=== PATIENT | female | born 1960 | race Caucasian/White ===

== ENCOUNTER 2024-01-16 17:13 | Inpatient (IN) | payer MEDICARE ==
[~2024-01-16] VITALS: Ht 157.4 cm; Wt 102.6 kg
[2024-01-16 18:29] VITALS: BP 149/70
[2024-01-16 19:03] LABS: BASO # 0.1 10*3/uL (0.0-0.1); BASO % 0.5 % (0.0-1.0); EOS # 0.3 10*3/uL (0.0-0.4); EOS % 2.1 % (1.0-4.0); HEMATOCRIT 32.2 % (37.0-47.0); LYMPH # 2.4 10*3/uL (1.3-4.4); LYMPH % 20.3 % (27.0-41.0); MEAN CELL VOLUME 100.9 fl (81.0-99.0); MEAN CORPUSCULAR HGB 32.9 pg (27.0-31.0); MEAN CORPUSCULAR HGB CONC 32.6 g/dl (33.0-37.0); MONO # 0.9 10*3/uL (0.1-1.0); MONO % 7.9 % (3.0-9.0); NEUT # 8.2 10*3/uL (2.3-7.9); NEUT % 68.8 % (47.0-73.0); PLATELET COUNT AUTOMATED 220 10*3/uL (130-400); RED BLOOD COUNT 3.19 10*6/uL (4.10-5.10); RED CELL DISTRI WIDTH 12.8 % (0-14.5); WHITE BLOOD COUNT 11.9 10*3/uL (4.8-10.8)
[2024-01-16 19:20] LABS: BILIRUBIN Negative (Negative); BLOOD Negative (Negative); CLARITY Clear (Clear); COLOR Yellow (Yellow); GLUCOSE Trace (Negative); KETONE Trace (Negative); LEUKO ESTERASE 2+ (Negative); NITRITE Negative (Negative)
[2024-01-16 19:26] LABS: URINE AMPHETAMINES Negative (1000ng/ml); URINE BARBITURATES Negative (200ng/ml); URINE BENZODIAZEPINES Negative (200ng/ml); URINE CANNABINOIDS (THC) Negative (50ng/ml); URINE COCAINE Negative (300ng/ml); URINE METHADONE Negative (300ng/ml); URINE OPIATES Negative (300ng/ml); URINE PHENCYCLIDINE Negative (25ng/ml)
[2024-01-16 19:27] LABS: ALKALINE PHOSPHATASE 55 U/L (46-116); BUN 27 mg/dl (9-23); CHLORIDE 106 mmol/L (98-107); CPK 200 U/L (34-171); SGPT/ALT 23 U/L (5-49); TOTAL PROTEIN 6.9 gm/dL (6.0-8.0)
[2024-01-16 19:31] LABS: ETHYL ALCOHOL < 3.0 mg/dl (<3)
[2024-01-16 19:33] LABS: BACTERIA 1+; MUCOUS 1+; RBC 0-2 rbc/hpf (0-2); WBC 21-30 wbc/hpf (0-5)
[2024-01-16] MEDS ORDERED: Ciprofloxacin Hydrochloride 500 MG TAB PO ONE (20:55)
[2024-01-16] MEDS ORDERED: MG-AL HYDROXIDE/SIMETICONE 30 ML UDC PO PRN (22:20)
[2024-01-16] MEDS ORDERED: ACETAMINOPHEN 325 MG TAB PO PRN (22:20)
[2024-01-16] MEDS ORDERED: Magnesium Hydroxide 30 ML UDC PO PRN (22:20)
[2024-01-16 22:23] VITALS: BP 148/77
[2024-01-16] MEDS ORDERED: Menthol/Zinc Oxide 4 GM THIN T PRN (22:30)
[2024-01-16] MEDS ORDERED: METOPROLOL SUCC25 M2 PO (22:46)
[2024-01-16] MEDS ORDERED: VITAMIN D325 MCG PO (22:47)
[2024-01-16] MEDS ORDERED: LIPITOR80 MG PO (22:49)
[2024-01-16] MEDS ORDERED: HEARTBURN RELIE20 MG PO (22:49)
[2024-01-16] MEDS ORDERED: ANTIVERT25 M2 PO (22:50)
[2024-01-16] MEDS ORDERED: IRON325 M1 PO (22:51)
[2024-01-16] MEDS ORDERED: ZESTRIL10 MG PO (22:51)
[2024-01-16] MEDS ORDERED: GOOD SENSE ASPI81 M1 PO (22:52)
[2024-01-16] MEDS ORDERED: CYMBALTA60 MG PO (22:52)
[2024-01-16] MEDS ORDERED: LASIX40 MG PO (22:53)
[2024-01-16] MEDS ORDERED: LANTUS SOL100 UNIT/1 SC (22:53)
[2024-01-16] MEDS ORDERED: EXELON1 EAC2 TD (22:54)
[2024-01-16] MEDS ORDERED: GEODON60 M1 PO (22:55)
[2024-01-16] MEDS ORDERED: HUMALOG100 UNIT/1 SC (22:55)
[2024-01-16] MEDS ORDERED: COLACE100 MG PO (22:56)
[2024-01-16] MEDS ORDERED: GERI-TUSSI100 MG/5 M PO (22:57)
[2024-01-16] MEDS ORDERED: NYSTATIN15 GM T (22:58)
[2024-01-16] MEDS ORDERED: Water, Sterile 10 ML VIAL IM PRN (23:10)
[2024-01-16] MEDS ORDERED: LORazepam 2 MG/ML VIAL IM PRN (23:10)
[2024-01-16] MEDS ORDERED: Ziprasidone Mesylate 20 MG VIAL IM PRN (23:10)
[2024-01-16] MEDS ORDERED: LORazepam 1 MG TAB PO PRN (23:10)
[2024-01-17] MEDS ORDERED: NYSTATIN 15 GM BOT T PRN (00:30)
[2024-01-17] MEDS ORDERED: GUAIFENESIN 10 ML UDC PO PRN (00:30)
[2024-01-17 08:00] VITALS: BP 143/56
[2024-01-17] MEDS ORDERED: Ciprofloxacin Hydrochloride 500 MG TAB PO SCH (08:00)
[2024-01-17] MEDS ORDERED: Meclizine Hydrochloride 25 MG TAB PO SCH (09:00)
[2024-01-17] MEDS ORDERED: RIVASTIGMINE 13.3 MG/24 HR TDM T SCH (09:00)
[2024-01-17] MEDS ORDERED: ASPIRIN, CHEWABLE 81 MG TAB PO SCH (09:00)
[2024-01-17] MEDS ORDERED: FUROSEMIDE 40 MG TAB PO SCH (09:00)
[2024-01-17] MEDS ORDERED: LISINOPRIL 10 MG TAB PO SCH (09:00)
[2024-01-17] MEDS ORDERED: RISPERIDONE 0.5 MG TAB PO SCH (09:00)
[2024-01-17] MEDS ORDERED: FAMOTIDINE 20 MG TAB PO SCH (09:00)
[2024-01-17] MEDS ORDERED: Vitamin D 1,000 IU TAB (25 MCG) PO SCH (09:00)
[2024-01-17] MEDS ORDERED: ATORVASTATIN CALCIUM 80 MG TAB PO SCH (09:00)
[2024-01-17] MEDS ORDERED: METOPROLOL SUCCINATE XR 25 MG TAB PO SCH (10:00)
[2024-01-17 18:53] VITALS: BP 114/66
[2024-01-17] MEDS ORDERED: Memantine Hydrochloride 5 MG TAB PO SCH (21:00)
[2024-01-17] MEDS ORDERED: Mirtazapine 15 MG TAB PO SCH (21:00)
[2024-01-18 08:00] VITALS: BP 158/90
[2024-01-18 08:14] VITALS: BP 158/90
[2024-01-18] MEDS ORDERED: AMPICILLIN 500 MG CAP PO SCH (12:00)
[2024-01-18 20:00] VITALS: BP 132/66
[2024-01-18] MEDS ORDERED: Memantine Hydrochloride 5 MG TAB PO SCH (21:00)
[2024-01-19 07:40] VITALS: BP 150/57
[2024-01-19 20:36] VITALS: BP 134/75
[2024-01-19] MEDS ORDERED: RISPERIDONE 1 MG TAB PO SCH (21:00)
[2024-01-19] MEDS ORDERED: NYSTATIN 15 GM BOT T SCH (22:00)
[2024-01-20 08:00] VITALS: BP 88/58
[2024-01-20] MEDS ORDERED: Memantine Hydrochloride 10 MG TAB PO SCH (09:00)
[2024-01-20] MEDS ORDERED: RISPERIDONE 0.5 MG TAB PO SCH (09:00)
[2024-01-20 09:33] VITALS: BP 96/62
[2024-01-20 13:31] LABS: BASO # 0.1 10*3/uL (0.0-0.1); BASO % 0.6 % (0.0-1.0); EOS # 0.1 10*3/uL (0.0-0.4); EOS % 1.1 % (1.0-4.0); HEMATOCRIT 31.7 % (37.0-47.0); LYMPH # 1.2 10*3/uL (1.3-4.4); LYMPH % 10.3 % (27.0-41.0); MEAN CELL VOLUME 101.3 fl (81.0-99.0); MEAN CORPUSCULAR HGB 31.9 pg (27.0-31.0); MEAN CORPUSCULAR HGB CONC 31.5 g/dl (33.0-37.0); MEAN PLATELET VOLUME 11.4 fl (9.6-12.3); MONO # 0.6 10*3/uL (0.1-1.0); MONO % 5.5 % (3.0-9.0); NEUT # 9.2 10*3/uL (2.3-7.9); PLATELET COUNT AUTOMATED 236 10*3/uL (130-400); RED BLOOD COUNT 3.13 10*6/uL (4.10-5.10); RED CELL DISTRI WIDTH 12.6 % (0-14.5); WHITE BLOOD COUNT 11.2 10*3/uL (4.8-10.8)
[2024-01-20 14:03] LABS: POTASSIUM 4.9 mmol/L (3.4-5.1); TOTAL PROTEIN 6.7 gm/dL (6.0-8.0)
[2024-01-20] MEDS ORDERED: DEXTROSE 10 % IN WATER 250 ML IV PRN (14:15)
[2024-01-20] MEDS ORDERED: SODIUM CHLORIDE 0.9% 1,000 ML IV ONE (14:15)
[2024-01-20] MEDS ORDERED: INSULIN LISPRO 1 UNIT/0.01 ML SQ SCH (16:30)
[2024-01-20 20:00] VITALS: BP 133/52
[2024-01-20] MEDS ORDERED: Insulin Glargine, Recombinan 300 UNITS/3 ML PEN SC SCH (22:00)
[2024-01-21 07:53] VITALS: BP 146/57
[2024-01-21 08:36] LABS: POTASSIUM 4.4 mmol/L (3.4-5.1)
[2024-01-21 20:00] VITALS: BP 151/66
[2024-01-22 07:04] LABS: BASO # 0.1 10*3/uL (0.0-0.1); BASO % 0.6 % (0.0-1.0); EOS # 0.3 10*3/uL (0.0-0.4); EOS % 2.7 % (1.0-4.0); HEMATOCRIT 32.4 % (37.0-47.0); LYMPH # 2.7 10*3/uL (1.3-4.4); LYMPH % 27.8 % (27.0-41.0); MEAN CELL VOLUME 99.4 fl (81.0-99.0); MEAN CORPUSCULAR HGB 32.2 pg (27.0-31.0); MEAN CORPUSCULAR HGB CONC 32.4 g/dl (33.0-37.0); MEAN PLATELET VOLUME 11.4 fl (9.6-12.3); MONO # 0.7 10*3/uL (0.1-1.0); MONO % 7.6 % (3.0-9.0); NEUT % 60.9 % (47.0-73.0); PLATELET COUNT AUTOMATED 189 10*3/uL (130-400); RED BLOOD COUNT 3.26 10*6/uL (4.10-5.10); RED CELL DISTRI WIDTH 12.4 % (0-14.5); WHITE BLOOD COUNT 9.8 10*3/uL (4.8-10.8)
[2024-01-22 07:27] LABS: POTASSIUM 3.7 mmol/L (3.4-5.1)
[2024-01-22 07:49] VITALS: BP 130/71
[2024-01-22 20:00] VITALS: BP 118/60
[2024-01-22] MEDS ORDERED: Mirtazapine 15 MG TAB PO SCH (21:00)
[2024-01-23 07:33] VITALS: BP 151/86
[2024-01-23 20:00] VITALS: BP 140/72
[2024-01-24 08:00] VITALS: BP 162/69
[2024-01-24 20:00] VITALS: BP 99/75
[2024-01-24] MEDS ORDERED: Mirtazapine 15 MG TAB PO SCH (21:00)
[2024-01-24] MEDS ORDERED: RAMELTEON 8 MG TAB PO SCH (21:00)
[2024-01-24] MEDS ORDERED: LORazepam 2 MG/ML VIAL IM PRN (23:05)
[2024-01-24] MEDS ORDERED: LORazepam 1 MG TAB PO PRN (23:05)
[2024-01-25 07:58] VITALS: BP 102/64
[2024-01-25 20:00] VITALS: BP 115/64
[2024-01-26 07:50] VITALS: BP 114/59
[2024-01-26] MEDS ORDERED: REZVOGLAR100 UNIT/1 SC (09:17)
[2024-01-26] MEDS ORDERED: RISPERDAL1 M1 PO (09:38)
[2024-01-26] MEDS ORDERED: RAMELTEON8 MG PO (09:38)
[2024-01-26] MEDS ORDERED: RIVASTIGMINE1 EAC2 T (09:38)
[2024-01-26] MEDS ORDERED: RISPERIDONE0.5 MG PO (09:38)
[2024-01-26] MEDS ORDERED: MEMANTINE HCL10 MG PO (09:38)
[2024-01-26] MEDS ORDERED: MIRTAZAPINE15 M2 PO (09:38)
== END 2024-01-26 13:15 | DRG 885 ==
LOC: ED 17:13 → EDBD 17:22 → 3N 21:03
PROVIDERS: Internal Medicine; Nurse Practitioner Family; ADMIT Psychiatry & Neurology Psychiatry; ATTEND Psychiatry & Neurology Psychiatry
PROC: GZHZZZZ Group Psychotherapy (ICD-10-PCS; principal; 2024-01-17)
PROC: GZ52ZZZ Individual Psychotherapy, Cognitive (ICD-10-PCS; 2024-01-17)
PROC: GZ56ZZZ Individual Psychotherapy, Supportive (ICD-10-PCS; 2024-01-17)
DX: F25.1 Schizoaffective disorder, depressive type (principal); F63.81 Intermittent explosive disorder; N17.0 Acute kidney failure with tubular necrosis; N39.0 Urinary tract infection, site not specified; E87.1 Hypo-osmolality and hyponatremia; F23 Brief psychotic disorder; F41.9 Anxiety disorder, unspecified; D64.9 Anemia, unspecified; F40.10 Social phobia, unspecified; F60.9 Personality disorder, unspecified; F22 Delusional disorders; E55.9 Vitamin D deficiency, unspecified; R73.9 Hyperglycemia, unspecified; G30.9 Alzheimer's disease, unspecified; F02.80 Dementia in other diseases classified elsewhere, unspecified severity, without behavioral disturbance, psychotic disturbance, mood disturbance, and anxiety